=== PATIENT | male | born 1950 | race Caucasian/White ===

== ENCOUNTER 2016-11-14 11:19 | Emergency (ER) | payer BC ==
[2016-11-14 11:31] VITALS: BP 151/102
[2016-11-14] MEDS ORDERED: Lidocaine 1.5% EPI 1:200,000* 30 ML SDV INJ ONE (11:34)
[2016-11-14] MEDS ORDERED: Lidocaine 2% W/EPI 1:100,000* 20 ML MDV ONE (11:41)
[2016-11-14] MEDS ORDERED: Lidocaine 2% W/EPI 1:100,000* 20 ML MDV INJ ONE (11:42)
--- NOTE | 2016-11-14 12:23 | ED ---
Laceration/Wound HPI - HPI Summary HPI Summary: 66M presents with right leg laceration from sheet metal. He states that he lost a lot of blood from the laceration. He denies any foreign body. He is not on blood thinners but he is does take a daily aspirin. He states pain is 5/ 10 and has not taken anything for pain. He wrapped area in towel. His last tetanus was 2 years ago. - History of Current Complaint Stated Complaint: leg laceration Time Seen by Provider: 11/14/16 11:29 - Allergy/Home Medications Allergies/Adverse Reactions: Allergies Allergy/AdvReac Type Severity Reaction Status Date / Time No Known Allergies Allergy Verified 11/14/16 11:21 Home Medications: Home Medications Amlodipine Besylate [Norvasc 10 mg tab] 10 mg PO DAILY 11/14/16 [History Confirmed 11/14/16] Atorvastatin* [Lipitor*] 10 mg PO QPM 11/14/16 [History Confirmed 11/14/16] Bimatoprost 0.01% OPHTH (NF) [Lumigan 0.01% OPHTH (NF)] 1 drop BOTH EYES DAILY 11/14/16 [History Confirmed 11/14/16] Dorzolamide HCl-Timolol Maleat [Cosopt 22.3-6.8 mg/ml] 1 ophth.soln BOTH EYES DAILY 11/14/16 [History Confirmed 11/14/16] Febuxostat(NF) [Uloric(NF)] 40 mg PO DAILY 11/14/16 [History Confirmed 11/14/16] PMH/Surg Hx/FS Hx/Imm Hx Endocrine/Hematology History: Denies: Hx Anticoagulant Therapy, Hx Diabetes Cardiovascular History: Reports: Hx Hypertension Infectious Disease History: No Infectious Disease History: Denies: Hx Clostridium Difficile, Hx Hepatitis, Hx Human Immunodeficiency Virus (HIV), Hx of Known/Suspected MRSA, Hx Shingles, Hx Tuberculosis, Hx Known/ Suspected VRE, Hx Known/Suspected VRSA, History Other Infectious Disease, Traveled Outside the [place] in Last 30 Days - Family History Known Family History: Positive: Hypertension - Social History Alcohol Use: None Substance Use Type: Reports: None Smoking Status (MU): Never Smoked Tobacco Review of Systems Negative: Fever Negative: Chest Pain Negative: Shortness Of Breath Positive: Other - laceration right leg All Other Systems Reviewed And Are Negative: Yes Physical Exam Triage Information Reviewed: Yes Vital Signs On Initial Exam: Initial Vitals Temp Pulse Resp BP Pulse Ox 98.5 F 77 18 151/102 99 11/14/16 11:28 11/14/16 11:28 11/14/16 11:28 11/14/16 11:28 11/14/16 11:28 Vital Signs Reviewed: Yes Appearance: Positive: Well-Appearing Skin: Positive: Warm, Dry, Other - 18cm by 4cm Head/Face: Positive: Normal Head/Face Inspection Eyes: Positive: Normal, EOMI, RON, Conjunctiva Clear ENT: Positive: Normal ENT inspection, Pharynx normal, TMs normal Respiratory/Lung Sounds: Positive: Clear to Auscultation, Breath Sounds Present Cardiovascular: Positive: Normal, RRR Musculoskeletal: Positive: Strength/ROM Intact - of right leg, Other - good pulses, capillary refill<2 secs Procedures - Laceration/Wound Repair 1 Location: lower extremity - right leg Description: Linear Anesthesia: Local, 1.0%, Epi Length, Depth and Shape: 18cm by 4cm by 1cm depth Betadine Prep?: Yes Irrigated w/ Saline (ccs): 1,000 Laceration/Wound Explored: clean, no foreign body removed Closure: Multilayer, Glidden #__ - 20 Suture Type: Chromic - 4-0 Number of Sutures: 5 Layer Closure?: Yes - 5 deep sutures, 20 matthias Sterile Dressing Applied?: No Diagnostics - Vital Signs Vital Signs Temp Pulse Resp BP Pulse Ox 11/14/16 11:28 98.5 F 77 18 151/102 99 - Laboratory Lab Statement: Any lab studies that have been ordered have been reviewed, and results considered in the medical decision making process. Laceration Repair Course/Dx - Course Course Of Treatment: 66M presents with right leg laceration from sheet metal. He states that he lost a lot of blood from the laceration. He denies any foreign body. He is not on blood thinners but he is does take a daily aspirin. He states pain is 5/10 and has not taken anything for pain. He wrapped area in towel. His last tetanus was 2 years ago. on exam has large laceration down to muscle but not through muscle. some capillary bleeding. extensively cleaned area and placed 5 deep sutures, 20 matthias. explained signs of infection to return to ED for. patient also has elevated bp which has history of but may be due to anxiety and pain at this time. patient understands and agrees with plan. - Differential Dx Differental Diagnoses: Abrasion, Avulsion, Laceration - Clinical Impression Provider Diagnoses: Laceration of right lower leg, Hypertension Discharge - Discharge Plan Condition: Good Disposition: HOME Patient Education Materials: Staple Care (ED) Referrals: Vijaya Smith MD [Primary Care Provider] - Additional Instructions: Take Tylenol or ibuprofen for pain Keep area dry for 24 hours Do not scrub staple area Return to ED, UC, or primary in 10-14 days to have matthias removed Follow up with primary within 5 days to recheck blood pressure Return to ED if develop signs of infection such as fever, spreading redness, or pus or any new or worsening symptoms
== END 2016-11-14 12:30 | disposition home or self-care (01) ==
LOC: UCEAST 11:19
DX: S81.811A Laceration without foreign body, right lower leg, initial encounter (principal); W45.8XXA Other foreign body or object entering through skin, initial encounter; Y93.9 Activity, unspecified; Y92.9 Unspecified place or not applicable; I10 Essential (primary) hypertension; Z79.82 Long term (current) use of aspirin
CPT/HCPCS: 12034; 12035; 99211; G0463

== ENCOUNTER 2018-07-12 15:36 | Emergency (ER) | payer BC ==
[2018-07-12 15:42] VITALS: BP 155/98
--- OUTSIDE RECORDS SUMMARY | 2018-07-12 15:42 | XMS REPORT | Continuity of Care Document ---
:1950 External Reference #:[id number] Author Name Eda Krishnamurthy Care Team Providers Name Role Phone Vijaya Fuchs MD Primary Care Physician Unavailable Payers Date Identification Numbers Payment Provider Subscriber Policy Number: [id number] Medicare Eder Nice PayID: [id number] [address] [place] [address] Policy Number: [id number] [facility] Eder Nice PayID: [id number] [address] [address] [place] [address] Advance Directives Description No Information Available Problems Description No Information Family History Description No Information Available Social History Type Date Description Comments Sex Unknown Marital Status Lives With Spouse Occupation [employer] ETOH Use Consumes 1 beer per day Tobacco Use Start: Unknown End: Patient is a former smoker Unknown Recreational Drug Use Denies Drug Use Smoking Status Reviewed: 06/20/18 Patient is a former smoker Exercise Type/Frequency Exercises regularly Allergies, Adverse Reactions, Alerts Description No Known Drug Allergies Medications Medication Date Status Form Strength Qnty SIG Indications Ordering Provider Suprep Bowel 06/20/ Active Solution 17.5-3.13 1unit take Joby S. Prep Kit 2019 -1.6GM/17 s according to Kristina newsome MD physician's instructions the day before your procedure. split the dose as directed. Cialis / Active Tablets 10mg take one Unknown 0000 tablet at least 30 minutes before needed Timolol / Active Solution 0.5% Unknown Maleate 0000 Lumigan / Active Solution 0.01% every night Unknown 0000 Amlodipine-Saray / Active Tablets 10-320-25 1 by mouth Unknown sartan-HCTZ 0000 mg every day Colchicine / Active Tablets 0.6mg 1 by mouth Unknown 0000 every day Gabapentin / Active Capsules 300mg 1 by mouth Unknown 0000 three times a day Omeprazole / Active Capsules 20mg 1 by mouth Unknown 0000 DR every day Atorvastatin / Active Tablets 40mg 1 by mouth Unknown Calcium 0000 every day Uloric / Active Tablets 40mg 1 by mouth Unknown 0000 every day Immunizations Description No Information Available Vital Signs Date Vital Result Comment 06/20/2018 1:35pm Height 75 inches 6'3" Weight 215.00 lb Heart Rate 88 /min BP Systolic 146 mmHg BP Diastolic 82 mmHg Respiratory Rate 18 /min Body Temperature 97.6 F BMI (Body Mass Index) 26.9 kg/m2 Results Description No Information Available Procedures Description No Information Available Encounters Description No Information Available Plan of Treatment 06/20/2018 - Joby Acevedo, [id number] [id number] Personal history of colonic polypsFollow up:Office will call you to schedule upper endoscopy and colonoscopy. Colonoscopy prep prescription willbe sent to your pharmacy. Follow the instructions given to you for preparation for your colonoscopy.
--- NOTE | 2018-07-12 16:53 | ED ---
Laceration/Wound HPI - HPI Summary HPI Summary: 68-year-old male presents with left arm laceration. He states that he cut it with a jig saw. no actively bleeding. He is not on blood thinners. His only medical conditions is a history of cataracts surgery. tetanus up-to-date. No foreign body in wound. - History of Current Complaint Stated Complaint: ARM LACERATION Time Seen by Provider: 07/12/18 16:20 Pain Intensity: 0 - Allergy/Home Medications Allergies/Adverse Reactions: Allergies Allergy/AdvReac Type Severity Reaction Status Date / Time No Known Allergies Allergy Verified 07/12/18 15:42 PMH/Surg Hx/FS Hx/Imm Hx Endocrine/Hematology History: Denies: Hx Anticoagulant Therapy, Hx Diabetes Cardiovascular History: Reports: Hx Hypertension Musculoskeletal History: Comment Only: Hx Rheumatoid Arthritis - PT STATES HAS NOT BEEN DETERMINED Infectious Disease History: No Infectious Disease History: Denies: Hx Clostridium Difficile, Hx Hepatitis, Hx Human Immunodeficiency Virus (HIV), Hx of Known/Suspected MRSA, Hx Shingles, Hx Tuberculosis, Hx Known/ Suspected VRE, Hx Known/Suspected VRSA, History Other Infectious Disease, Traveled Outside the in Last 30 Days - Family History Known Family History: Positive: Hypertension - Social History Alcohol Use: None Substance Use Type: Reports: None Smoking Status (MU): Never Smoked Tobacco Review of Systems Negative: Fever Negative: Chest Pain Negative: Shortness Of Breath Positive: Other - left wrist laceration All Other Systems Reviewed And Are Negative: Yes Physical Exam Triage Information Reviewed: Yes Vital Signs On Initial Exam: Initial Vitals Temp Pulse Resp BP Pulse Ox 98.7 F 78 16 155/98 97 07/12/18 15:38 07/12/18 15:38 07/12/18 15:38 07/12/18 15:38 07/12/18 15:38 Vital Signs Reviewed: Yes Appearance: Positive: Well-Appearing Skin: Positive: Warm, Dry, Other - 4cm by 1cm laceration of left wrist ulnar aspect Head/Face: Positive: Normal Head/Face Inspection Eyes: Positive: Normal, Conjunctiva Clear ENT: Positive: Pharynx normal Respiratory/Lung Sounds: Positive: Clear to Auscultation, Breath Sounds Present Cardiovascular: Positive: Normal, RRR Musculoskeletal: Positive: Strength/ROM Intact - left wrist, Other - good pulses , capillary refill< 2secs Neurological: Positive: Normal Psychiatric: Positive: Normal Procedures - Laceration/Wound Repair 1 Location: Other - left wrist Description: Linear Anesthesia: Local, 1.0% Length, Depth and Shape: 4cm by 1cm Irrigated w/ Saline (ccs): 200 Closure: Single Layer Suture Type: Prolene Number of Sutures: 6 Sterile Dressing Applied?: No - telfa and christopher Diagnostics - Vital Signs Vital Signs Temp Pulse Resp BP Pulse Ox 07/12/18 15:38 98.7 F 78 16 155/98 97 - Laboratory Lab Statement: Any lab studies that have been ordered have been reviewed, and results considered in the medical decision making process. Laceration Repair Course/Dx - Course Course Of Treatment: 68-year-old male presents with left arm laceration. He states that he cut it with a jig saw. no actively bleeding. He is not on blood thinners. His only medical conditions is a history of cataracts surgery. tetanus up-to-date. No foreign body in wound. On exam neurovascular intact. Has full range of motion wrist. has 4cm by 1cm laceration of left wrist on ulnar aspect. Clean area and place [address] in [place]. Told to keep the area clean and dry. will have follow up with primary about blood pressure as is elevated at this time. Patient understands agrees plan. - Differential Dx Differental Diagnoses: Abrasion, Avulsion, Laceration - Clinical Impression Provider Diagnoses: Laceration of left wrist Discharge - Sign-Out/Discharge Documenting (check all that apply): Patient Departure All imaging exams completed and their final reports reviewed: No Studies - Discharge Plan Condition: Good Disposition: HOME Patient Education Materials: Care For Your Stitches (ED) Referrals: Vijaya Smith MD [Primary Care Provider] - Additional Instructions: Take Tylenol or ibuprofen for pain every 6 hours as needed Keep area clean and dry for 24 hours Return to ED or primary in 8-10 days to have sutures removed Return to ED if develop signs of infection such as fever, spreading redness, or pus. - Billing Disposition and Condition Condition: GOOD Disposition: Home - Attestation Statements Provider Attestation: I did not see or disposition this patient. I was available for consult.
== END 2018-07-12 17:00 | disposition home or self-care (01) ==
LOC: UCEAST 15:36
DX: S61.512A Laceration without foreign body of left wrist, initial encounter (principal); W31.2XXA Contact with powered woodworking and forming machines, initial encounter; Y92.9 Unspecified place or not applicable; I10 Essential (primary) hypertension
CPT/HCPCS: 12002; 99212; G0463

== ENCOUNTER 2021-07-15 17:21 | Observation (INO) ==
[2021-07-15 18:38] LABS: ABS Basophils 0.1 10^3/ul (0-0.2); ABS Eosinophils 0.1 10^3/ul (0-0.6); ABS Lymphocytes 1.1 10^3/ul (1.0-4.8); ABS Monocytes 0.7 10^3/ul (0-0.8); ABS Neutrophils 2.1 10^3/ul (1.5-7.7); Hematocrit 28 % (42-52); Hemoglobin 8.1 g/dL (14.0-18.0); Lymphocyte % 28.2 %; Mean Corpuscular HGB Conc 29 g/dL (31-36); Mean Corpuscular Hemoglobin 20 pg (27-31); Mean Corpuscular Volume 71 fL (80-94); Mean Platelet Volume 7.2 fL (7.4-10.4); Nucleated Red Blood Cells % 0.1; Platelet Count 267 10^3/uL (150-450); Red Blood Count 3.95 10^6 /uL (4.18-5.48); Red Cell Distribution Width 20 % (10-15); White Blood Count 4.1 10^3/uL (3.5-10.8)
[2021-07-15 19:27] LABS: Hypochromasia 1+; Microcytosis 1+; Polychromasia 1+; Stomatocytes 1+; TSH Ultra Thyroid Stim Horm 2.9 mcIU/mL (0.34-5.60)
[2021-07-15 19:39] LABS: Albumin 4.2 g/dL (3.2-5.2); Albumin/Globulin Ratio 1.9 (1-3); Calcium 9.2 mg/dL (8.6-10.3); Globulin 2.2 g/dL (2-4); Magnesium 2.2 mg/dL (1.9-2.7); Total Bilirubin 0.5 mg/dL (0.2-1.0); Total Protein 6.4 g/dL (6.4-8.9); eGFR CKD-EPI 66.8 (>60)
[2021-07-15 20:43] LABS: Urine Appearance Clear; Urine Bilirubin Negative (Negative); Urine Blood Negative (Negative); Urine Color Yellow; Urine Glucose Negative (Negative); Urine Ketones Negative (Negative); Urine Nitrite Negative (Negative); Urine Protein Negative (Negative); Urine Specific Gravity 1.011 (1.002-1.030); Urine Urobilinogen Negative (Negative)
[2021-07-16] MEDS ORDERED: Iohexol 350 (CONTRAST) 500 ML MDV IV ONE
[2021-07-16 02:19] LABS: Ferritin 8.8 ng/mL (24-336)
[2021-07-16 06:15] LABS: Immature Retic Fraction 0.62; RBC Retic Count 3.81 10^6/uL (4.18-5.48); Red Blood Count 3.81 10^6 /uL (4.18-5.48)
[2021-07-16 06:19] LABS: ABS Basophils 0.1 10^3/ul (0-0.2); ABS Eosinophils 0.1 10^3/ul (0-0.6); ABS Monocytes 0.5 10^3/ul (0-0.8); ABS Neutrophils 2.2 10^3/ul (1.5-7.7); Corrected Retic Count 1.9 % (0.5-1.5); Hematocrit 27 % (42-52); Hematocrit for Retic CNT 27 % (42-52); Mean Corpuscular HGB Conc 30 g/dL (31-36); Mean Corpuscular Hemoglobin 21 pg (27-31); Mean Corpuscular Volume 70 fL (80-94); Mean Platelet Volume 6.8 fL (7.4-10.4); Platelet Count 256 10^3/uL (150-450); Red Cell Distribution Width 21 % (10-15); White Blood Count 3.9 10^3/uL (3.5-10.8)
[2021-07-16 06:30] LABS: Calcium 8.8 mg/dL (8.6-10.3); HDL Cholesterol 52.3 mg/dL; Potassium 3.8 mmol/L (3.5-5.0); eGFR CKD-EPI 76.8 (>60)
[2021-07-16 07:24] LABS: HIV 4th Generation Nonreactive (Nonreactive)
[2021-07-16] MEDS ORDERED: Multivitamins/Minerals TAB PO SCH (09:00)
[2021-07-16] MEDS ORDERED: ICOSAPENT ETHYL 1 GM CAPSULE (NF) PO SCH (09:00)
[2021-07-16] MEDS ORDERED: CMC:Dorzolamide/Timolol OPTH (NF) 10 ML BOT BOTH EYES SCH (09:00)
[2021-07-16] MEDS: Brimonidine P 0.15%(NF) OPH SOL 5 ML BTL BOTH EYES SCH ×2 (09:42→14:00)
[2021-07-16] MEDS ORDERED: Cholecalciferol (VIT D3) 1,000 unit TAB PO SCH (11:00)
[2021-07-16] MEDS ORDERED: Gadoteridol (CONTRAST) 279.3 MG/ML 10 ML IV ONE (11:30)
[2021-07-16] MEDS ORDERED: Dexamethasone IV 4 MG/ML VIAL 1 ml VIAL IV SLOW PU ONE (16:05)
[2021-07-16 19:40] VITALS: BP 117/58
[2021-07-16] MEDS ORDERED: NETARSUDIL 0.02% BOTH EYES SCH (21:00)
[2021-07-16] MEDS ORDERED: Latanoprost 0.005% 2.5 ml BTL BOTH EYES SCH (21:00)
[2021-07-16] MEDS ORDERED: Heparin 5000 UNITS/ML 1 mL VIAL SUBCUT SCH (22:00)
[2021-07-17] MEDS ORDERED: Dexamethasone IV 4 MG/ML VIAL 1 ml VIAL IV SLOW PU SCH ×2 (06:00)
[2021-07-19 14:33] LABS: Albumin 3.4 g/dL (3.4-4.7); Albumin/Globulin Ratio 1.29; Gamma Globulin 0.7 g/dL (0.6-1.6)
== END 2021-07-16 19:24 | disposition home or self-care (01) ==
LOC: ED 17:21 → EDHOLD 17:21 → SUATTDRO 07-16 01:36 → MEDTELE 07-16 04:25
PROVIDERS: ADMIT Internal Medicine; ATTEND Hospitalist

== ENCOUNTER 2022-10-14 10:03 | Inpatient (IN) ==
[2022-10-14 10:28] LABS: ABS Eosinophils 0.1 10^3/uL (0.0-0.5); ABS Lymphocytes 0.4 10^3/uL (1.0-4.8); ABS Monocytes 0.3 10^3/uL (0.0-1.1); ABS Nucleated RBC 0.01 10^3/ul; Eosinophil % 1.9 %; Hematocrit 41.1 % (38-53); Hemoglobin 13.4 g/dL (13.2-16.3); Mean Corpuscular Hemoglobin 29.4 pg (27-33); Mean Corpuscular Hgb Conc 32.6 g/dL (31-36); Mean Corpuscular Volume 90.2 fL (80-97); Mean Platelet Volume 7.1 fL (7.5-11.2); Nucleated Red Blood Cells % 0.1 /100 WBC (0.0-0.4); Platelet Count 114 10^3/uL (150-450); Red Blood Count 4.56 10^6/uL (4.06-5.63); Red Cell Distribution Width 17.2 % (12-17); White Blood Count 4.8 10^3/uL (3.6-10.2)
[2022-10-14 10:43] LABS: Albumin 3.5 g/dL (3.2-5.2); Albumin/Globulin Ratio 1.6 (1-3); Calcium 8.9 mg/dL (8.6-10.3); Creatinine, Serum 0.99 mg/dL (0.67-1.17); Globulin 2.2 g/dL (2-4); Potassium 3.4 mmol/L (3.5-5.0); Total Bilirubin 0.4 mg/dL (0.2-1.0); Total Protein 5.7 g/dL (6.4-8.9)
[2022-10-14] MEDS ORDERED: Iohexol 350 (CONTRAST) 500 ML MDV IV ONE (11:14)
[2022-10-14 12:49] LABS: Magnesium 1.8 mg/dL (1.9-2.7)
[2022-10-14] MEDS ORDERED: Magnesium Sulfate 2 gm BAG 2 GM/50 ML BAG IVPB ONE (14:30)
[2022-10-14] MEDS ORDERED: Potassium Chlor 20 meq TAB.ER PO ONE (14:30)
[2022-10-14] MEDS ORDERED: Senna TAB 8.6 mg TAB PO PRN (14:56)
[2022-10-14] MEDS ORDERED: Polyethylene Glycol 3350 17 GM PACKET PO PRN (14:56)
[2022-10-14] MEDS ORDERED: Magnesium Hydroxide LIQ 30 ML UDC PO PRN (14:56)
[2022-10-14] MEDS: Albuterol HFA INHALER 8 gm MDI INH SCH ×2 (16:40→20:09)
[2022-10-14] MEDS: Potassium Chlor 10 meq TAB PO SCH (20:28)
[2022-10-14] MEDS ORDERED: NETARSUDIL 0.02% BOTH EYES SCH (21:00)
[2022-10-14] MEDS ORDERED: Latanoprost 0.005% 2.5 ml BTL BOTH EYES SCH (21:00)
[2022-10-14] MEDS: Magnesium Hydroxide LIQ 30 ML UDC PO SCH (21:38)
[2022-10-14] MEDS: CMCS:Brimonidine P 0.15%(NF) OPH SOL 5 ML BTL BOTH EYES SCH (23:30)
[2022-10-14] MEDS: CMCS:Dorzolamide/Timolol OPTH (NF) 10 ML BOT BOTH EYES SCH (23:30)
[2022-10-15 07:24] LABS: Hematocrit 39.9 % (38-53); Hemoglobin 13.2 g/dL (13.2-16.3); Mean Corpuscular Hemoglobin 29.7 pg (27-33); Mean Corpuscular Hgb Conc 33.1 g/dL (31-36); Mean Corpuscular Volume 89.5 fL (80-97); Platelet Count 111 10^3/uL (150-450); Red Blood Count 4.46 10^6/uL (4.06-5.63); White Blood Count 5.7 10^3/uL (3.6-10.2)
[2022-10-15 07:37] LABS: Calcium 8.6 mg/dL (8.6-10.3); Creatinine, Serum 1.05 mg/dL (0.67-1.17); Magnesium 1.9 mg/dL (1.9-2.7); Potassium 3.8 mmol/L (3.5-5.0); eGFR CKD-EPI 76.4 (>60)
[2022-10-15] MEDS: Albuterol HFA INHALER 8 gm MDI INH SCH ×4 (08:54→20:03)
[2022-10-15] MEDS: Potassium Chlor 10 meq TAB PO SCH ×2 (09:33→20:16)
[2022-10-15] MEDS: CMCS:Brimonidine P 0.15%(NF) OPH SOL 5 ML BTL BOTH EYES SCH (09:35)
[2022-10-15] MEDS: CMCS:Dorzolamide/Timolol OPTH (NF) 10 ML BOT BOTH EYES SCH (09:36)
[2022-10-15] MEDS: Magnesium Hydroxide LIQ 30 ML UDC PO SCH ×2 (09:37→20:33)
[2022-10-15] MEDS: PTO:Brimonidine 0.2% 5 ML BTL BOTH EYES SCH ×2 (15:29→20:14)
[2022-10-15] MEDS ORDERED: Netarsudil Mesylat/Lananoprost 0.02%-0.005% EYE DRP 2.5 ml BOTTLE BOTH EYES SCH (20:00)
[2022-10-15] MEDS ORDERED: NETARSUDIL 0.02% BOTH EYES SCH (20:00)
[2022-10-15] MEDS: PTO:Bimatoprost 0.01% OPHTH (NF) 2.5 ML BTL BOTH EYES SCH (20:14)
[2022-10-15] MEDS: PTO:Dorzolamide/Timolol OPTH (NF) 10 ML BOT BOTH EYES SCH (20:14)
[2022-10-16 07:06] LABS: Hemoglobin 13.7 g/dL (13.2-16.3); Mean Corpuscular Hgb Conc 33.4 g/dL (31-36); Mean Corpuscular Volume 89.9 fL (80-97); Mean Platelet Volume 7.6 fL (7.5-11.2); Platelet Count 117 10^3/uL (150-450); Red Blood Count 4.56 10^6/uL (4.06-5.63); Red Cell Distribution Width 17.6 % (12-17); White Blood Count 6.3 10^3/uL (3.6-10.2)
[2022-10-16 07:21] LABS: Creatinine, Serum 0.96 mg/dL (0.67-1.17); Magnesium 1.8 mg/dL (1.9-2.7); Potassium 3.6 mmol/L (3.5-5.0)
[2022-10-16] MEDS: Albuterol HFA INHALER 8 gm MDI INH SCH ×4 (07:28→19:59)
[2022-10-16] MEDS: Magnesium Sulfate 2 gm BAG 2 GM/50 ML BAG IVPB ONE ×2 (09:29→09:41)
[2022-10-16] MEDS: Potassium Chlor 10 meq TAB PO SCH ×2 (09:43→19:38)
[2022-10-16] MEDS: PTO:Brimonidine 0.2% 5 ML BTL BOTH EYES SCH ×3 (09:45→19:38)
[2022-10-16] MEDS: PTO:Dorzolamide/Timolol OPTH (NF) 10 ML BOT BOTH EYES SCH ×2 (09:45→19:38)
[2022-10-16] MEDS: Magnesium Hydroxide LIQ 30 ML UDC PO SCH ×2 (09:46→19:38)
[2022-10-16 14:28] VITALS: BP 130/71
[2022-10-16] MEDS: PTO:Bimatoprost 0.01% OPHTH (NF) 2.5 ML BTL BOTH EYES SCH (19:38)
== END 2022-10-16 20:00 | disposition home or self-care (01) | DRG 175 ==
LOC: ED 10:03 → EDHOLD 13:10 → MEDTELE 21:36
PROVIDERS: ADMIT Internal Medicine; ATTEND Internal Medicine